=== PATIENT | female | born 1940 | race Caucasian/White ===

== ENCOUNTER 2023-11-22 11:19 | Emergency (ER) | payer MEDICARE, OTHER, SELFPAY ==
[2023-11-22 11:21] VITALS: BP 154/98
--- NOTE | 2023-11-22 11:55 | ED.GENMED ---
History of Present Illness
General
Chief Complaint: Abdominal Symptoms
Source: patient
Exam Limitations: none
Time Seen by Provider: 11/22/23 11:34
History of Present Illness
History of Present Illness:
This is an 82-year-old female who presents for evaluation of a protrusion that keeps coming and going in her right lower abdomen. She states she suspect she has a hernia and her daughter was concerned because her daughter had a strangulated hernia
in the past. The patient states her daughter and recommended she get an ultrasound. The patient offers no current complaints. She denies abdominal pain or vomiting. No fevers. She states she has been trying to a lot of core exercises recently.
She also states she is traveling soon and just did not want to have any issue while traveling to [place]
Past History
Past History
ED Past Medical History: Arrthythmia (afib) and Other (Headache, neuropathy, 'heart murmur', dysentery in the 70s, cataracts, shingles, skin cancer)
Social History
Tobacco: Non-smoker
Phy Exam
Physical Exam
Physical Exam:
CONSTITUTIONAL Patient alert and oriented to person, place and time. Well-appearing. Vital signs reviewed.
HEAD atraumatic, normocephalic.
EYES eyelids normal to inspection, Pupils equally round and reactive to light, Extraocular muscles intact, Conjunctiva normal, Sclera normal.
NECK normal range of motion, Trachea midline, no jugular venous distention.
RESPIRATORY CHEST No respiratory distress noted, Chest expansion equal
ABDOMEN I am able to palpate a small fascial defect in the right high groin region. No palpable hernia but there is a little bit of protrusion with Valsalva. No distention, no tenderness
BACK normal inspection, no obvious deformities
UPPER EXTREMITY range of motion normal, Motor strength normal, no cyanosis, no edema.
LOWER EXTREMITY range of motion normal, Motor strength normal, no cyanosis, no edema.
NEURO Speech normal, No focal motor deficits, [place] coma scale 15, Memory normal, Cranial Nerves intact to screening exam.
Course
Vital Signs
Initial and Last Documented VS:
Initial Vital Signs
Temp Pulse Resp BP Pulse Ox
97.9 F 103 18 154/98 99
11/22/23 11:21 11/22/23 11:21 11/22/23 11:21 11/22/23 11:21 11/22/23 11:21
Last Documented Vital Signs
Temp Pulse Resp BP Pulse Ox
97.9 F 103 18 154/98 99
11/22/23 11:21 11/22/23 11:21 11/22/23 11:21 11/22/23 11:21 11/22/23 11:21
MDM/Problems Addressed
MDM/Problems Addressed:
Abdominal hernia
*Pulse Oximetry
Patient hypoxic: no
*Critical Care Note
Total Time (30-74mins, 75-104mins- exclusive of procedures): Not Applicable
Data Reviewed
Source: patient
Further Testing Considered But Not Given:
Considered imaging by CT but no incarceration.
Patient Management
Escalation/DeEscalation of care consider admission/obs:
Patient appears well. Will refer to PCP and surgical follow-up. Certainly no evidence of incarcerated hernia. Patient was really here for just a workup that is best done as an outpatient. Patient in fact does not even want surgery unless it was
emergent. I recommended she follow-up with her PCP to monitor it. Also recommended no heavy lifting and no straining. Patient agrees
ED Attending Note
-
Portions of this chart may have been created with voice recognition software.� Occasional wrong word or��sound alike� substitutions may have occurred due to the inherent limitations of voice recognition software.
Discharge Plan
Departure
Patient Disposition: Home (Routine Discharge)
Date of Disposition: 11/22/23
Time of Disposition: 11:56
Patient with high blood pressure during this ER visit?: Yes
Discharge Problem:
Hernia
Instructions: Abdominal Hernia, BLOOD PRESSURE
Prescriptions:
No Action
diltiazem HCl 30 MG tablet
30 mg PO BID
food supplemt, lactose-reduced [Ensure Original] 237 ML liquid
8 oz PO DAILY
dabigatran etexilate [Pradaxa] 110 MG capsule
110 mg PO BID
L.acidoph, paracasei,B. lactis 1 EACH capsule
1 tab PO DAILY
Bisoprolol Fumarate 5 MG
2.5 mg PO PRN PRN (Reason: TACHYCARDIA)
Patient Comments:
usually takes daily
Referrals:
Cayden Jett MD [Active] -
Activity Restrictions/Additional Instructions:
Please avoid straining or lift heavy objects more than 10 pounds. If you do have protrusion of your hernia and there is pain, please lay flat with your feet up and attempt to reduce it as discussed. If you have a continued hernia and protrusion
with pain please return or present yourself to close emergency department. Return medially for abdominal pain, vomiting or fevers. Please see your doctor or surgery in the next 1 week for follow-up and reevaluation.
Interventions
Interventions:
*Risk Screen - Suicide Last Done: 11/22/23 11:21
*General Assessment Last Done: 11/22/23 11:21
*Neglect/Abuse Screening Last Done: 11/22/23 11:21
ED- Fall Risk Assessment Last Done: 11/22/23 12:04
*ED COVID-19 Vaccine History Last Done: 11/22/23 12:04
XW-Ddbulz-Ixwzbujfzt Assessment Last Done: 11/22/23 12:04
Discharge Date and Time
Print Language: SYRIAC
[2023-11-22 12:04] VITALS: BMI 28.0
== END 2023-11-22 12:36 | disposition home or self-care (01) ==
LOC: EMR 11:19
PROVIDERS: EMERGENCY PHYSICIAN Emergency Medicine; FAMILY PHYSICIAN Hospitalist
DX: K46.9 Unspecified abdominal hernia without obstruction or gangrene (principal); I48.91 Unspecified atrial fibrillation; Z85.828 Personal history of other malignant neoplasm of skin; R01.1 Cardiac murmur, unspecified
CPT/HCPCS: 99282

== ENCOUNTER 2023-12-26 12:59 | Emergency (ER) | payer MEDICARE, OTHER, SELFPAY ==
[2023-12-26 13:00] VITALS: BP 162/87
[2023-12-26 13:15] VITALS: BMI 21.5
[2023-12-26 13:31] LABS: % Basophils 0.7 % (0-2); % Eosinophils 0.2 % (0-6); % Immature Granulocytes 0.2 % (0-0.5); % Lymphocytes 23.9 % (20.5-51.1); % Monocytes 7.8 % (1.7-9.3); % Neutrophils 67.2 % (42.2-75.2); Absolute Basophils 0.1 10^3/uL (0-0.2); Absolute Lymphocytes 2.1 10^3/uL (1.2-3.4); Absolute Monocytes 0.7 10^3/uL (0.1-0.6); Absolute Neutrophils 5.9 10^3/uL (1.4-6.5); Hematocrit 42.2 % (37.0-47.0); Hemoglobin 14.2 g/dL (12.0-16.0); Mean Corp Hgb Conc. 33.6 g/dL (33.0-37.0); Mean Corpuscular Hgb 31.1 pg (27.0-31.0); Mean Corpuscular Volume 92.3 fL (81.0-99.0); Nucleated Red Blood Cells % 0 %; Platelet Count 201 10^3/uL (130-400); Red Blood Cell Count 4.57 10^6/uL (4.20-5.40); Red Cell Dist. Width 12.1 % (11.5-14.5); White Blood Cell Count 8.7 10^3/uL (4.8-10.8)
[2023-12-26 13:37] VITALS: BP 127/85
[2023-12-26 13:39] LABS: INR 1.57; PT 18.6 Sec (11.4-14.6)
[2023-12-26 13:40] LABS: APTT 58.8 Sec (23.4-35.0)
--- NOTE | 2023-12-26 13:52 | ED.GENMED ---
History of Present Illness
General
Chief Complaint: Musculo-Skeletal Complaint
Source: patient
Exam Limitations: none
Time Seen by Provider: 12/26/23 13:27
Nursing documentation reviewed up to this point in time: agreed with
History of Present Illness
History of Present Illness:
Patient is 83-year-old female with history of A-fib on anticoagulation, vasculitis presents to the ER for evaluation. Patient was exercising on her stationary bike Thursday and hit her right lower leg on the pedal. Since patient has had increasing
pain to the area and swelling. She reports she can barely touch it. She is able however to bear weight.
Patient is very active and continues to walk. She walked one mile today. She did drive her self here to the hospital. She is on Pradaxa for afib.
She denies any fever chills .
Past History
Past History
ED Past Medical History: Arrthythmia (afib) and Other (Headache, neuropathy, 'heart murmur', dysentery in the 70s, cataracts, shingles, skin cancer)
Social History
Tobacco: Non-smoker
Review of Systems
Review of Systems
Allergies reviewed?: Yes
All Other Systems: ROS reviewed and negative except as documented in HPI and ROS
Constitutional: Reports no symptoms; Denies fever, fatigue or chills
Respiratory: Reports no symptoms
Cardiac: Reports no symptoms
Musculoskeletal: Reports other (right leg pain/injury/swelling )
Skin: Reports no symptoms
Neurological: Reports no symptoms
Psychiatric: Reports no symptoms
Phy Exam
General Physical Exam
General Presentation: no apparent distress
General age: appears stated age
General Skin: warm and dry
General Habitus: normal
General Mental: alert
General Hydration: appears well hydrated
Neurological Exam
Neurological Exam: alert and oriented x3
Musculoskeletal Exam
Musculoskeletal Exam: other (rle with strong pulses : + ecchymosis to right anterior lower leg with hematoma )
Skin Exam
Skin Exam: normal color and warm/dry
Psychiatric Exam
Psychiatric Exam: normal mood/affect
Course
Orders/Labs/Results
Orders:
Orders
12/26/23 13:13
EKG [Electrocardiogram (*1)] Urgent
Reason for Study: Tachycardia
EKG- Treatment ONCE
12/26/23 13:20
Complete Blood Count/With Diff Urgent
Comprehensive Metabolic Panel Urgent
Lactate Level [Lactic Acid] Urgent
PTT Urgent
Prothrombin Time Urgent
12/26/23 13:53
Tib/Fib, Right 2 View [CR Leg Tibia/fibula Right 2 Vw] Urgent
Comment:
Reason For Exam: trauma
Venous Doppler Lwr Ext Rt [US Periph Venous LOWER Ext RT] Urgent
Comment:
Reason For Exam: pain s/p injury swelling
12/26/23 14:56
Cephalexin Monohydrate [Keflex] 500 mg PO NOW STA
Abnormal Lab Results
12/26/23
13:20
MCH 31.1 H pg
(27.0-31.0)
Absolute Monos (auto) 0.7 H 10^3/uL
(0.1-0.6)
PT 18.6 H Sec
(11.4-14.6)
APTT 58.8 H Sec
(23.4-35.0)
BUN 19 H mg/dl
(7-17)
Glucose 130 H mg/dl
(70-99)
12/26/23 13:20
12/26/23 13:20
Vital Signs
Initial and Last Documented VS:
Initial Vital Signs
Temp Pulse Resp BP Pulse Ox
101 F H 124 22 162/87 97
12/26/23 13:00 12/26/23 13:00 12/26/23 13:00 12/26/23 13:00 12/26/23 13:00
Last Documented Vital Signs
Temp Pulse Resp BP Pulse Ox
98.3 F 102 24 103/92 98
12/26/23 15:15 12/26/23 15:15 12/26/23 15:15 12/26/23 15:15 12/26/23 15:15
MDM/Problems Addressed
Differential Diagnosis Includes:
Not limited to hematoma less likely fracture less likely cellulitis less likely DVT
MDM/Problems Addressed:
Symptoms are with contusion, patient hit her right lower leg on a bike pedal Thursday. There is no break in skin there is an obvious hematoma skin is very bruised very slightly red it is very sensitive to touch. She denies any fevers she denies any
recent illness. Initially her temp was 101 however patient's temperature was checked several times here and it was 98.8. She has not had a fever at home and has not had any infectious complaints. Her white count is normal x-rays were done along
with ultrasound both of which were normal. Likely contusion however will cover with antibiotics as it is mildly red she does have a history of vasculitis with close outpatient follow-up PCP. I did speak with patient and daughter over the phone
with patient at bedside both agreeable plan of care.
Chronic conditions affecting care:
On Pradaxa A-fib,
*Radiology
Radiology exam reviewed: radiology read reviewed
*Pulse Oximetry
Patient hypoxic: no
*Critical Care Note
Total Time (30-74mins, 75-104mins- exclusive of procedures): Not Applicable
ED Attending Note
-
Portions of this chart may have been created with voice recognition software.� Occasional wrong word or��sound alike� substitutions may have occurred due to the inherent limitations of voice recognition software.
Discharge Plan
Departure
Patient Disposition: Home (Routine Discharge)
Date of Disposition: 12/26/23
Time of Disposition: 14:56
Patient with high blood pressure during this ER visit?: Yes
Condition: Fair
Covid-19: Not Applicable
Discharge Problem:
Contusion
Instructions: Contusion (DC)
Prescriptions:
New
cephalexin 500 mg capsule
500 mg PO Q6H Qty: 28 0RF
No Action
diltiazem HCl 30 MG tablet
30 mg PO BID
food supplemt, lactose-reduced [Ensure Original] 237 ML liquid
8 oz PO DAILY
dabigatran etexilate [Pradaxa] 110 MG capsule
110 mg PO BID
L.acidoph, paracasei,B. lactis 1 EACH capsule
1 tab PO DAILY
Bisoprolol Fumarate 5 MG
2.5 mg PO PRN PRN (Reason: TACHYCARDIA)
Patient Comments:
usually takes daily
Referrals:
Kristen Chavez, DO [Family Provider] -
Activity Restrictions/Additional Instructions:
As discussed symptoms are likely contusion however you are given an antibiotic for the redness to the area take as directed. this was sent to your pharmacy.
Keep elevated as much as possible. Follow-up close with your family doctor the next 7 days for reevaluation return if any worsening of symptoms or increased pain worsening redness fever chills or any further concerns.
Interventions
Interventions:
*Risk Screen - Suicide Last Done: 12/26/23 13:00
*General Assessment Last Done: 12/26/23 13:00
*Neglect/Abuse Screening Last Done: 12/26/23 13:00
ED- Fall Risk Assessment Last Done: 12/26/23 13:15
*ED COVID-19 Vaccine History Last Done: 12/26/23 13:15
*Nursing Disposition Last Done: 12/26/23 15:15
ED-Musculoskeletal Assessment Last Done: 12/26/23 13:16
Discharge Date and Time
Discharge Date/Time: 12/26/23 15:34
Print Language: UGANDAN
[2023-12-26 13:59] LABS: ALT (SGPT) 15 U/L (0-35); AST (SGOT) 26 U/L (14-36); Alkaline Phosphatase 103 U/L (38-126); Blood Urea Nitrogen 19 mg/dl (7-17); Calcium 9.5 mg/dl (8.4-10.2); Carbon Dioxide 24 mmol/L (22-30); Chloride 107 mmol/L (98-107); Estimated Creatinine Clearance 44 ml/min; Glucose 130 mg/dl (70-99); Potassium 3.9 mmol/L (3.5-5.1); Sodium 142 mmol/L (135-145); Total Bilirubin 1.1 mg/dl (0.2-1.3); Total Protein 6.5 g/dl (6.3-8.2); eGFR > 60.00
[2023-12-26 14:00] VITALS: BP 146/83
[2023-12-26 15:00] VITALS: BP 103/92
[2023-12-26] MEDS: KEFLEX 500 MG PO (15:07)
[2023-12-26 15:15] VITALS: BP 103/92
== END 2023-12-26 15:34 | disposition home or self-care (01) ==
LOC: EMR 12:59
PROVIDERS: EMERGENCY PHYSICIAN Emergency Medicine; FAMILY PHYSICIAN Hospitalist; REFERRING PHYSICIAN Internal Medicine Cardiovascular Disease
DX: S80.11XA Contusion of right lower leg, initial encounter (principal); W22.8XXA Striking against or struck by other objects, initial encounter; I48.91 Unspecified atrial fibrillation; Z79.01 Long term (current) use of anticoagulants
CPT/HCPCS: 99285; 73590; 80053; 83605; 85025; 85610; 85730; 93005; 93971

== ENCOUNTER → 2024-01-29 10:07 | Outpatient (REF) | payer MEDICARE, OTHER, SELFPAY | LOC: RAD 10:07 | PROVIDERS: ATTENDING PHYSICIAN Surgery; FAMILY PHYSICIAN Hospitalist | DX: K43.9 Ventral hernia without obstruction or gangrene (principal) | CPT/HCPCS: 74177; Q9967 ==

== ENCOUNTER 2024-08-12 12:11 | Emergency (ER) | payer MEDICARE, OTHER, SELFPAY ==
[2024-08-12 12:14] VITALS: BP 136/91
--- NOTE | 2024-08-12 13:22 | ED.GENMED ---
History of Present Illness
General
Chief Complaint: Musculo-Skeletal Complaint
Source: patient
Exam Limitations: none
Time Seen by Provider: 08/12/24 13:10
History of Present Illness
History of Present Illness:
83yoF with a history of atrial fibrillation on Pradaxa presenting for evaluation of low back pain. Patient reports pain in her left lower back which radiates to the left hip for the past several months. She denies any trauma. Pain is primarily
present if she goes from sitting to standing. She denies any pain while sitting down. She has been taking Tylenol sporadically but nothing consistently. She is otherwise asymptomatic and denies any abdominal pain, fevers, incontinence, saddle
anesthesia. No pain, weakness, or paresthesias of the lower extremities. No prior history of back surgeries. 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 Otherwise no history of malignancy.
Patient had a recent in the family and is scheduled to fly to [place] later this month. Her family members are in the medical field and told her to go to the ED for a CT scan.
Past History
Past History
ED Past Medical History: Arrthythmia (afib) and Other (Headache, neuropathy, 'heart murmur', dysentery in the 70s, cataracts, shingles, skin cancer)
Social History
Tobacco: Non-smoker
Phy Exam
Physical Exam
Physical Exam:
Patient ambulating during exam
General Physical Exam
General Presentation: well appearing and no apparent distress
General age: appears stated age
General Skin: warm and dry
General Habitus: normal and elderly
General Mental: alert
ENT Exam
ENT Exam: normocephalic
Pulmonary Exam
Pulmonary Exam: no respiratory distress
Neurological Exam
Neurological Exam: alert
Musculoskeletal Exam
Musculoskeletal Exam: other (No tenderness to palpation of the lumbar region. Pain elicited with standing. ROM of L hip normal. No skin changes noted.)
Skin Exam
Skin Exam: normal color and warm/dry
Psychiatric Exam
Psychiatric Exam: normal mood/affect
Course
Orders/Labs/Results
Orders:
Orders
08/12/24 13:21
CT Lumbar Spine W/o Iv Contras Urgent
Comment:
Reason For Exam: low back pain
Hip, Left 2-3 Views [CR Hip - LT w/wo Pel 2-3 Vw*] Urgent
Comment:
Reason For Exam: L hip pain
Include a pelvis x-ray?: Yes
Vital Signs
Initial and Last Documented VS:
Initial Vital Signs
Temp Pulse Resp BP Pulse Ox
98.3 F 104 16 136/91 98
08/12/24 12:14 08/12/24 12:14 08/12/24 12:14 08/12/24 12:14 08/12/24 12:14
Last Documented Vital Signs
Temp Pulse Resp BP Pulse Ox
98.3 F 87 16 133/94 97
08/12/24 12:14 08/12/24 17:07 08/12/24 17:07 08/12/24 17:07 08/12/24 17:07
MDM/Problems Addressed
Differential Diagnosis Includes:
83yoF here with L low back pain that radiates to the L hip x several months. Worse with position changes. No red flags in history including no fevers, saddle anesthesia, incontinence. VSS. No tenderness to palpation of the lumbar region.
Differential diagnosis includes but is not limited to: muscular strain, osteoarthritis, fracture, herniated disc
Initial ED plan: Check L hip x-rays and CT lumbar spine.
*Critical Care Note
Total Time (30-74mins, 75-104mins- exclusive of procedures): Not Applicable
Update Note
Update Note:
Imaging negative for fractures. 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 She was started on a course of prednisone. Advised f/u with PCP and
orthopedics for likely outpatient PT. She was discharged in stable condition.
ED Attending Note
-
Portions of this chart may have been created with voice recognition software.� Occasional wrong word or��sound alike� substitutions may have occurred due to the inherent limitations of voice recognition software.
Discharge Plan
Departure
Patient Disposition: Home (Routine Discharge)
Date of Disposition: 08/12/24
Time of Disposition: 16:58
Patient with high blood pressure during this ER visit?: No
Discharge Problem:
Low back pain
Instructions: Low back pain in adults
Prescriptions:
New
prednisone 20 mg tablet
40 mg PO DAILY 5 Days Qty: 10 0RF
No Action
diltiazem HCl 30 MG tablet
30 mg PO BID
food supplemt, lactose-reduced [Ensure Original] 237 ML liquid
8 oz PO DAILY
dabigatran etexilate [Pradaxa] 110 MG capsule
110 mg PO BID
L.acidoph,paracasei,B.animalis 1 EACH capsule
1 tab PO DAILY
Bisoprolol Fumarate 5 MG
2.5 mg PO PRN PRN (Reason: TACHYCARDIA)
Patient Comments:
usually takes daily
cephalexin 500 mg capsule
500 mg PO Q6H Qty: 28 0RF
Referrals:
Kristen Chavez DO [Family Provider] -
Umair Mistry MD [Active] -
Activity Restrictions/Additional Instructions:
Take prednisone as prescribed. Take Tylenol 650 mg every 6 hours as needed. Use lidocaine patches daily (12 hours on, 12 hours off).
Please follow-up with your family doctor and orthopedics. Return to the ER with any new or worsening symptoms.
Interventions
Interventions:
*Risk Screen - Suicide Last Done: 08/12/24 12:14
*General Assessment Last Done: 08/12/24 14:04
*Neglect/Abuse Screening Last Done: 08/12/24 12:14
*ED- Fall Risk Assessment Last Done: 08/12/24 14:04
*ED COVID-19 Vaccine History Last Done: 08/12/24 14:04
*Nursing Disposition Last Done: 08/12/24 17:08
ED-Musculoskeletal Assessment Last Done: 08/12/24 14:06
Discharge Date and Time
Discharge Date/Time: 08/12/24 17:09
Print Language: GREEK
[2024-08-12 17:07] VITALS: BP 133/94
== END 2024-08-12 17:09 | disposition home or self-care (01) ==
LOC: EMR 12:11
PROVIDERS: EMERGENCY PHYSICIAN Emergency Medicine; FAMILY PHYSICIAN Hospitalist
DX: M54.50 Low back pain, unspecified (principal); I48.91 Unspecified atrial fibrillation; Z79.01 Long term (current) use of anticoagulants; Z85.828 Personal history of other malignant neoplasm of skin
CPT/HCPCS: 99284; 72131; 73502

== ENCOUNTER → 2024-09-12 14:27 | Outpatient (REF) | payer MEDICARE, OTHER, SELFPAY | LOC: PAVMRI 14:27 | PROVIDERS: ATTENDING PHYSICIAN Physician Assistant Surgical; FAMILY PHYSICIAN Hospitalist | DX: M54.16 Radiculopathy, lumbar region (principal) | CPT/HCPCS: 72148 ==